=== PATIENT | female | born 1935 | race Caucasian/White ===

== ENCOUNTER 2018-08-15 11:15 | Emergency (ER) | payer MEDICARE ==
[~2018-08-15] VITALS: Ht 149.9 cm; Wt 70.0 kg
[~2018-08-15 11:15] MED LIST: AMOXICILLIN/CL875 MG OR; AMOXICILLIN875 MG OR; CENTRUM OR; LOTREL1 CA4 PO; MOBIC15 MG PO; VITAMIN B-12 PO
[2018-08-15] MEDS ORDERED: ANASTROZOLE1 MG PO (12:31)
[2018-08-15] MEDS ORDERED: CALCIUM + D600 MG PO (12:31)
[2018-08-15] MEDS ORDERED: TAM75CAP PO (12:56)
[2018-08-15] MEDS ORDERED: TORADOL PO (12:56)
[2018-08-15 13:24] VITALS: BP 147/71
== END 2018-08-15 13:24 | disposition home or self-care (01) ==
LOC: ED 11:15
DX: S16.1XXA Strain of muscle, fascia and tendon at neck level, initial encounter (principal); I10 Essential (primary) hypertension; M19.90 Unspecified osteoarthritis, unspecified site; B34.9 Viral infection, unspecified; W19.XXXA Unspecified fall, initial encounter

== ENCOUNTER 2018-08-21 15:06 | Observation (INO) | payer MEDICARE ==
[~2018-08-21] VITALS: Ht 149.9 cm; Wt 64.0 kg
[~2018-08-21 15:06] MED LIST changes: +ANASTROZOLE1 MG PO; +CALCIUM + D600 MG PO; +TAM75CAP PO; +TORADOL PO
--- NOTE | 2018-08-21 15:14 | NUR ---
WHEELCHAIR TO ER ROOM 9, TO BED
[2018-08-21 15:56] LABS: HEMATOCRIT 36.2 % (37.0-47.0); HEMOGLOBIN 12.6 g/dl (12.0-16.0); IMMATURE GRANULOCYTES 0.8 % (0.0-5.0); MEAN CORPUSCULAR HGB 30.3 pG CALC (26.0-32.0); MEAN CORPUSCULAR HGB CONC 34.8 g/L CALC (32.0-36.0); NEUT# 12.35 thou/uL (2.00-7.15); RED BLOOD COUNT 4.16 mill/uL (4.20-5.60); RED CELL DISTRI WIDTH 12.9 % (11.5-15.5)
[2018-08-21 16:20] LABS: ALKALINE PHOSPHATASE 184 u/l (38-126); ANION GAP 18 (6-22 (CALC)); BILIRUBIN, TOTAL 2.3 mg/dL (0.0-1.4); BUN 69 mg/dL (8-23); BUN/CREATININE RATIO 32 (12-20 (CALC)); CARBON DIOXIDE 20 mmol/l (22-30); CHLORIDE 102 mmol/l (95-108); CREATININE 2.1 mg/dL (0.5-1.0); GFR 22 ML/MIN (>=60 (CALC)); GFR FOR AFR.AMER. 27 ML/MIN (>=60 (CALC)); POTASSIUM 3.1 mmol/l (3.5-5.1); SGOT/AST 44 u/l (9-36); SODIUM 137 mmol/l (137-146); TOTAL PROTEIN 5.7 g/dL (6.3-8.2)
--- NOTE | 2018-08-21 16:21 | NUR ---
pt resting quietly on stretcher, at bedside
[2018-08-21 16:37] LABS: URINE BLOOD DIPSTICK TRACE-LYSED (NEGATIVE); URINE COLOR YELLOW; URINE GLUCOSE - DIPSTICK NEGATIVE (NEGATIVE); URINE KETONE TRACE mg/dL (NEGATIVE); URINE LEUK ESTERASE TRACE (NEGATIVE); URINE NITRITE - DIPSTICK NEGATIVE (Negative); URINE PROTEIN - DIPSTICK TRACE mg/dL (NEG-TRACE)
[2018-08-21 16:45] LABS: URINE BILIRUBIN - DIPSTICK NEGATIVE (NEGATIVE)
--- NOTE | 2018-08-21 17:09 | NUR ---
PT UP TO BEDSIDE COMMODE, STATES FEELS A LITTLE WEAK AND SHAKEY GETTING UP, HELPED HER TO BEDSIDE COMMODE AND BACK TO BED. PT ALERT/ORIENTED X3, DENIES ANY PAIN OR BURNING WITH URINATION, STATES SHE HAS NOT BEEN EATING OR DRINKING MUCH NORMAL THE PAST 3-4 DAYS.
--- NOTE | 2018-08-21 17:55 | NUR ---
REPORT CALLED TO FLOOR
--- NOTE | 2018-08-21 18:00 | NUR ---
Admission Note Report Given to: SBAR PRINTED TO FLOOR Transported by: X Wheelchair Stretcher Transported with: X Nurse Transporter X Patent IV [id number] Tortilla Maker
--- NOTE | 2018-08-21 18:05 | NUR ---
PT TAKEN TO MED SURG PER W/C WITH MEAL TRAY
[2018-08-21 18:17] VITALS: BP 128/63
--- NOTE | 2018-08-21 18:19 | NUR ---
PT ARRIVED TO THE UNIT VIA WC AT 1805. FAMILY IN THE ROOM.
--- NOTE | 2018-08-21 18:25 | NUR ---
ASSESSMENT IS COMPLETED: IV SITE IS FREE FROM REDNESS OR EDEMA. HR IS REG, PULSES ARE STRONG X4, ABD IS SOFT WITH ACTIVE BS. BREATH SOUNDS ARE CLEAR,BILATERALLY. PT AMBULATED TO THE BED WITH STAND BY ASSIST. FROM THE . CONTINUE TO OBSERVE AND MONITOR.
--- NOTE | 2018-08-21 19:30 | NUR ---
REPORT RECEVED FROM STACEY TYSON. PT RESTING IN BED, NO SIGNS OR SYMPTOMS OF DISTRESS. WILL CONTINUE TO MONITOR.
[2018-08-21 19:35] VITALS: BP 117/56
--- NOTE | 2018-08-21 21:08 | NUR ---
PT SLEEPING IN BED EASILY AROUSED. ALERT AND ORIENTED. RESPIRATIONS EVEN AND UNLABORED ON RA, LUNGS SOUND CLEAR. PT DENIES ANY PAIN OR DISCOMFORTS. IV # 20 LH, INFUSING LR @ 100 ML/HR. ASSISTED PT TO BATHROOM GATE STEADY PT DENIES ANY DIZZINESS. PT RETURNED TO BED, TURNED THE TV ON PER PT REQUEST AND THE LIGHTS OFF. SAFETY PRECAUTIONS IN PLACE. WILL CONTINUE TO MONITOR.
[2018-08-22 04:05] VITALS: BP 115/50
--- NOTE | 2018-08-22 04:16 | NUR ---
PT RESTING IN BED WITH EYES CLOSED. NO SIGNS OR SYMPTOMS OF DISTRESS. SAFETY PRECAUTION IN PLACE. WILL CONTINUE TO MONITOR.
[2018-08-22 06:20] LABS: HEMATOCRIT 31.8 % (37.0-47.0); HEMOGLOBIN 11.2 g/dl (12.0-16.0); IMMATURE GRANULOCYTES 0.8 % (0.0-5.0); MEAN CELL VOLUME 87.4 fL CALC (80.0-100.0); MEAN CORPUSCULAR HGB 30.8 pG CALC (26.0-32.0); MEAN CORPUSCULAR HGB CONC 35.2 g/L CALC (32.0-36.0); NEUT# 8.2 thou/uL (2.00-7.15); RED BLOOD COUNT 3.64 mill/uL (4.20-5.60); RED CELL DISTRI WIDTH 13.1 % (11.5-15.5)
[2018-08-22 06:28] LABS: ALBUMIN 2.3 g/dL (3.2-5.0); ALKALINE PHOSPHATASE 160 u/l (38-126); AMYLASE < 30 u/l (30-110); ANION GAP 13 (6-22 (CALC)); BILIRUBIN, TOTAL 1.5 mg/dL (0.0-1.4); BUN 61 mg/dL (8-23); BUN/CREATININE RATIO 30 (12-20 (CALC)); CARBON DIOXIDE 22 mmol/l (22-30); CHLORIDE 105 mmol/l (95-108); GFR 24 ML/MIN (>=60 (CALC)); GFR FOR AFR.AMER. 29 ML/MIN (>=60 (CALC)); LIPASE 156 u/l (23-300); MAGNESIUM 2.1 mg/dL (1.6-2.3); POTASSIUM 2.9 mmol/l (3.5-5.1); SGOT/AST 34 u/l (9-36); SODIUM 138 mmol/l (137-146); TOTAL PROTEIN 4.6 g/dL (6.3-8.2)
--- NOTE | 2018-08-22 07:30 | NUR ---
REPORT RECEIVED FROM CARLOS OROPEZA. PT AMBULATING IN ROOM. STEADY GAIT. PLAN OF CARE DISCUSSED. CALL LIGHT REVIEWED AND IN REACH. PT STATES UNDERSTANDING.
[2018-08-22 08:30] VITALS: BP 124/57
--- NOTE | 2018-08-22 12:23 | NUR ---
DR. MCFARLAND IN TO SEE PT. PLAN OF CARE UPDATED.
--- NOTE | 2018-08-22 15:18 | NUR ---
PT IN SEMI FOWLERS POSITION; NO COMPLAINTS VOICED; IVF INFUSING WITHOUT DIFFICULTY; CALL CHAWLA WITHIN REACH; WILL CONTINUE TO MONTIOR
[2018-08-22 16:00] VITALS: BP 120/61
--- NOTE | 2018-08-22 17:43 | NUR ---
REPORT RECEIVED FROM CARLOS TONY. PT RESTING IN BED. NO SIGNS OR SYMPTOMS OF DISTRESS. SAFETY PRECAUTIONS IN PLACE. WILL CONTINUE TO MONITOR.
[2018-08-22 19:51] VITALS: BP 128/69
--- NOTE | 2018-08-22 21:01 | NUR ---
PT RESTING IN RECLINER, WATCHING TV. PT AMBULATED TO BED, GATE STEADY, PT DENIES HAVING ANY DIZZINESS. ALERT AND ORIENTED. RESPIRATIONS EVEN AND UNLABORED ON RA. IV # 20 LW INFUSING LR @ 100. PT DENIES ANY PAIN OR DISCOMFORTS. SAFETY PRECAUTIONS IN PLACE. WILL CONTINUE TO MONITOR.
--- NOTE | 2018-08-23 00:58 | NUR ---
ASSISTED PT TO BATHROOM, AND BACK TO BED, WITH A STEADY GATE.
--- NOTE | 2018-08-23 04:06 | NUR ---
PT RESTING IN BED NO SIGNS OR SYMPTOMS OF DISTRESS. SAFETY PRECAUTIONS IN PLACE WILL CONTINUE TO MONITOR.
[2018-08-23 04:13] VITALS: BP 121/60
[2018-08-23 05:14] LABS: HEMATOCRIT 31.7 % (37.0-47.0); IMMATURE GRANULOCYTES 1.5 % (0.0-5.0); MEAN CORPUSCULAR HGB 30.9 pG CALC (26.0-32.0); MEAN CORPUSCULAR HGB CONC 34.7 g/L CALC (32.0-36.0); NEUT# 5.14 thou/uL (2.00-7.15); RED BLOOD COUNT 3.56 mill/uL (4.20-5.60); RED CELL DISTRI WIDTH 13.3 % (11.5-15.5)
[2018-08-23 05:42] LABS: ALBUMIN 2.2 g/dL (3.2-5.0); ALKALINE PHOSPHATASE 160 u/l (38-126); AMYLASE < 30 u/l (30-110); ANION GAP 13 (6-22 (CALC)); BILIRUBIN, TOTAL 0.7 mg/dL (0.0-1.4); BUN 45 mg/dL (8-23); BUN/CREATININE RATIO 32 (12-20 (CALC)); CARBON DIOXIDE 22 mmol/l (22-30); CHLORIDE 108 mmol/l (95-108); CREATININE 1.4 mg/dL (0.5-1.0); GFR 36 ML/MIN (>=60 (CALC)); GFR FOR AFR.AMER. 43 ML/MIN (>=60 (CALC)); LIPASE 160 u/l (23-300); MAGNESIUM 1.8 mg/dL (1.6-2.3); SGOT/AST 32 u/l (9-36); SODIUM 140 mmol/l (137-146); TOTAL PROTEIN 4.5 g/dL (6.3-8.2)
--- NOTE | 2018-08-23 07:30 | NUR ---
REPORT RECEIVED FROM CARLOS OROPEZA. PT AMBUALTING IN ROOM. DENIES PAIN. REPORTING OF CONCERNS ENCOURAGED. CALL LIGHT REVIEWED AND IN REACH. PLAN OF CARE REINFORCED. PT STATES UNDERSTANDING.
[2018-08-23 07:47] VITALS: BP 129/58
[2018-08-23] MEDS ORDERED: AMLODIPINE10 MG PO (15:11)
--- NOTE | 2018-08-23 15:42 | NUR ---
Discharge instructions given. Patient verbalizes understanding of same. Discharged in stable condition via Wheelchair to Home with spouse. All belongings sent with pt.
== END 2018-08-23 15:41 | disposition home or self-care (01) ==
LOC: ED 15:06 → ED-I 16:42 → ED 16:59 → MS2 17:00
PROVIDERS: Emergency Medicine; ADMIT Internal Medicine Nephrology; ATTEND Internal Medicine Nephrology
DX: N17.9 Acute kidney failure, unspecified (principal); I10 Essential (primary) hypertension; M19.90 Unspecified osteoarthritis, unspecified site; E86.0 Dehydration; E87.6 Hypokalemia; R79.89 Other specified abnormal findings of blood chemistry; D64.9 Anemia, unspecified; E46 Unspecified protein-calorie malnutrition; C50.919 Malignant neoplasm of unspecified site of unspecified female breast; D72.829 Elevated white blood cell count, unspecified; Z96.653 Presence of artificial knee joint, bilateral; Z79.1 Long term (current) use of non-steroidal anti-inflammatories (NSAID); Z79.811 Long term (current) use of aromatase inhibitors; Z68.28 Body mass index [BMI] 28.0-28.9, adult; R53.1 Weakness; R42 Dizziness and giddiness
CPT/HCPCS: G0378

== ENCOUNTER 2019-10-04 | Emergency (ER) | payer MEDICARE ==
[~2019-10-04] MED LIST changes: +AMLODIPINE10 MG PO
[2019-10-04] MEDS ORDERED: ASPIRIN81 MG PO (20:08)
[2019-10-04] MEDS ORDERED: ALLOPURINOL100 MG PO (20:09)
[2019-10-04] MEDS ORDERED: PLAVIX75 MG PO (20:09)
[2019-10-04] MEDS ORDERED: AMLODIPINE BESY10 MG PO (20:10)
[2019-10-04] MEDS ORDERED: LIPITOR40 M1 PO (20:10)
[2019-10-04] MEDS ORDERED: HYDROCO/APAP1 TA9 PO (21:40)
== END 2019-10-04 22:37 | disposition home or self-care (01) ==
PROC: 0HQ1XZZ Repair Face Skin, External Approach (ICD-10-PCS; principal; 2019-10-04)
DX: S42.301A Unspecified fracture of shaft of humerus, right arm, initial encounter for closed fracture (principal); S01.81XA Laceration without foreign body of other part of head, initial encounter; I10 Essential (primary) hypertension; W01.0XXA Fall on same level from slipping, tripping and stumbling without subsequent striking against object, initial encounter; Y92.009 Unspecified place in unspecified non-institutional (private) residence as the place of occurrence of the external cause; Z79.02 Long term (current) use of antithrombotics/antiplatelets